=== PATIENT | male | born 1975 | race Caucasian/White ===

== ENCOUNTER → 2019-09-01 | Outpatient (CLI) | payer OTHER ==
[2019-09-01 08:16] LABS: BASOPHILS % (AUTO) 0.7 % (0.0-5.0); EOSINOPHILS % (AUTO) 7.7 % (0.0-8.0); HEMATOCRIT 41.2 % (42-54); LYMPHOCYTES % (AUTO) 29.4 % (21.0-51.0); MEAN CORPUSCULAR HEMOGLOBIN 29.3 pg (27.0-33.0); MEAN CORPUSCULAR HGB CONC 34.7 g/dL (32.0-36.0); MEAN CORPUSCULAR VOLUME 84.4 fL (79-99); MONOCYTES % (AUTO) 9.7 % (3.0-13.0); NEUTROPHILS % (AUTO) 52.3 % (40.0-77.0); PLATELET COUNT (AUTO) 158 K/uL (130-400); RED BLOOD CELL COUNT(AUTO) 4.88 MIL/uL (4.50-6.20); RED CELL DISTRIBUTION WIDTH 12.8 % (11.0-15.5)
[2019-09-01 08:37] LABS: ALBUMIN 4.1 g/dL (3.5-5.0); CREATININE 1.1 mg/dL (0.5-1.5)
== END | disposition home or self-care (01) ==
LOC: LAB 07:57
PROVIDERS: ATTEND Internal Medicine
DX: I10 Essential (primary) hypertension (principal); E78.2 Mixed hyperlipidemia
CPT/HCPCS: 36415; 80053; 80061; 82043; 82570; 85025

== ENCOUNTER → 2020-02-01 | Outpatient (CLI) | payer OTHER ==
[2020-02-01 12:13] LABS: ALBUMIN 4.2 g/dL (3.5-5.0); CREATININE 1.2 mg/dL (0.5-1.5); POTASSIUM 4.4 mmol/L (3.5-5.1); TOTAL PROTEIN, SERUM 7.5 g/dL (6.0-8.3)
== END | disposition home or self-care (01) ==
LOC: LAB 07:57
PROVIDERS: ATTEND Internal Medicine
DX: I10 Essential (primary) hypertension (principal); E78.2 Mixed hyperlipidemia
CPT/HCPCS: 36415; 80053; 80061

== ENCOUNTER → 2020-08-16 | Outpatient (CLI) | payer OTHER ==
[2020-08-16 08:21] LABS: BASOPHILS % (AUTO) 0.7 % (0.0-5.0); EOSINOPHILS % (AUTO) 5.3 % (0.0-8.0); HEMATOCRIT 43.4 % (42-54); LYMPHOCYTES % (AUTO) 21.3 % (21.0-51.0); MEAN CORPUSCULAR HEMOGLOBIN 29.4 pg (27.0-33.0); MEAN CORPUSCULAR HGB CONC 35.3 g/dL (32.0-36.0); MEAN CORPUSCULAR VOLUME 83.5 fL (79-99); MONOCYTES % (AUTO) 9.6 % (3.0-13.0); NEUTROPHILS % (AUTO) 62.6 % (40.0-77.0); PLATELET COUNT (AUTO) 169 K/uL (130-400); WHITE BLOOD COUNT (AUTO) 5.8 K/uL (4.8-10.8)
[2020-08-16 08:35] LABS: CREATININE 0.8 mg/dL (0.5-1.5)
== END | disposition home or self-care (01) ==
LOC: LAB 07:54
PROVIDERS: ATTEND Internal Medicine
DX: J30.9 Allergic rhinitis, unspecified (principal)
CPT/HCPCS: 36415; 80053; 80061; 82043; 85025

== ENCOUNTER → 2021-08-28 | Outpatient (CLI) | payer OTHER ==
[2021-08-28 08:13] LABS: BASOPHILS % (AUTO) 0.5 % (0.0-5.0); HEMATOCRIT 46.1 % (42-54); LYMPHOCYTES % (AUTO) 30.3 % (21.0-51.0); MEAN CORPUSCULAR HEMOGLOBIN 28.9 pg (27.0-33.0); MEAN CORPUSCULAR HGB CONC 33.8 g/dL (32.0-36.0); MEAN CORPUSCULAR VOLUME 85.4 fL (79-99); MONOCYTES % (AUTO) 10.5 % (3.0-13.0); NEUTROPHILS % (AUTO) 51.2 % (40.0-77.0); PLATELET COUNT (AUTO) 194 K/uL (130-400); RED CELL DISTRIBUTION WIDTH 12.9 % (11.0-15.5)
[2021-08-28 08:31] LABS: ALBUMIN 4.4 g/dL (3.5-5.0); BILIRUBIN,TOTAL 0.7 mg/dL (0.2-1.0); POTASSIUM 4.3 mmol/L (3.5-5.1); TOTAL PROTEIN, SERUM 7.9 g/dL (6.0-8.3)
== END | disposition home or self-care (01) ==
LOC: LAB 07:14
PROVIDERS: ATTEND Internal Medicine
DX: I10 Essential (primary) hypertension (principal); E78.2 Mixed hyperlipidemia
CPT/HCPCS: 36415; 80053; 80061; 82043; 85025

== ENCOUNTER → 2021-09-03 | Outpatient (CLI) | payer OTHER | END | disposition home or self-care (01) | LOC: RAH 09:15 | PROVIDERS: ATTEND Internal Medicine | DX: Z13.6 Encounter for screening for cardiovascular disorders (principal) | CPT/HCPCS: 75571 ==

== ENCOUNTER → 2022-03-31 | Outpatient (CLI) | payer OTHER ==
[2022-03-31 08:08] LABS: ALBUMIN 3.9 g/dL (3.5-5.0); POTASSIUM 4.2 mmol/L (3.5-5.1)
== END | disposition home or self-care (01) ==
LOC: LAB 03-30 09:23
PROVIDERS: ATTEND Internal Medicine
DX: I10 Essential (primary) hypertension (principal); E78.2 Mixed hyperlipidemia
CPT/HCPCS: 36415; 80053; 80061

== ENCOUNTER → 2022-10-09 | Outpatient (CLI) | payer OTHER ==
[2022-10-09 08:09] LABS: HEMOGLOBIN A1C 5.1 % (4.0-6.0)
[2022-10-09 08:18] LABS: ALBUMIN 4.2 g/dL (3.5-5.0); CREATININE 0.9 mg/dL (0.5-1.5); POTASSIUM 4.1 mmol/L (3.5-5.1); TOTAL PROTEIN, SERUM 7.5 g/dL (6.0-8.3)
== END | disposition home or self-care (01) ==
LOC: LAB 07:35
PROVIDERS: ATTEND Internal Medicine
DX: I10 Essential (primary) hypertension (principal); R73.01 Impaired fasting glucose; J30.9 Allergic rhinitis, unspecified; E78.2 Mixed hyperlipidemia; D72.819 Decreased white blood cell count, unspecified
CPT/HCPCS: 36415; 80053; 80061; 82043; 83036

== ENCOUNTER → 2023-04-27 | Outpatient (CLI) | payer OTHER ==
[2023-04-27 08:52] LABS: ALBUMIN 3.9 g/dL (3.5-5.0); BILIRUBIN,TOTAL 0.8 mg/dL (0.2-1.0); POTASSIUM 4.1 mmol/L (3.5-5.1); TOTAL PROTEIN, SERUM 7.2 g/dL (6.0-8.3)
== END | disposition home or self-care (01) ==
LOC: LAB 08:13
PROVIDERS: ATTEND Internal Medicine
DX: I10 Essential (primary) hypertension (principal); E78.2 Mixed hyperlipidemia
CPT/HCPCS: 36415; 80053; 80061

== ENCOUNTER → 2023-12-01 | Outpatient (CLI) | payer OTHER ==
[2023-12-01 07:46] LABS: BASOPHILS # (AUTO) 0.03 K/uL (0.00-0.20); BASOPHILS % (AUTO) 0.6 % (0.0-5.0); EOSINOPHILS # (AUTO) 0.16 K/uL (0.00-0.70); EOSINOPHILS % (AUTO) 3.4 % (0.0-8.0); HEMATOCRIT 44.2 % (42-54); IMMATURE GRANULOCYTE ABSOLUTE 0.02 K/uL (0-1); LYMPHOCYTES # (AUTO) 1.3 K/uL (1.0-4.8); LYMPHOCYTES % (AUTO) 26.8 % (21.0-51.0); MEAN CORPUSCULAR HEMOGLOBIN 29.3 pg (27.0-33.0); MEAN CORPUSCULAR HGB CONC 35.3 g/dL (32.0-36.0); MEAN CORPUSCULAR VOLUME 83.1 fL (79-99); MONOCYTES # (AUTO) 0.5 K/uL (0.1-1.0); MONOCYTES % (AUTO) 10.5 % (3.0-13.0); NEUTROPHILS # (AUTO) 2.8 K/uL (1.8-7.7); NEUTROPHILS % (AUTO) 58.3 % (40.0-77.0); PLATELET COUNT (AUTO) 213 K/uL (130-400); RED BLOOD CELL COUNT(AUTO) 5.32 MIL/uL (4.50-6.20); RED CELL DISTRIBUTION WIDTH 13.3 % (11.0-15.5); WHITE BLOOD COUNT (AUTO) 4.7 K/uL (4.8-10.8)
[2023-12-01 07:58] LABS: APPEARANCE,URINE CLEAR (CLEAR); BILIRUBIN,URINE NEGATIVE (NEGATIVE); COLOR,URINE YELLOW (YELLOW); GLUCOSE, URINE (UA) NEGATIVE (NEGATIVE); KETONES,URINE NEGATIVE (NEGATIVE); LEUKOCYTE ESTERASE ,URINE NEGATIVE Leu/uL (NEGATIVE); NITRATE,URINE NEGATIVE (NEGATIVE); OCCULT BLOOD,URINE NEGATIVE (NEGATIVE); PH,URINE 5.5 (5.0-8.0); PROTEIN,URINE 20 mg/dL (NEGATIVE); UROBILINOGEN,URINE 0.2 mg/dL (0.2-1.0)
[2023-12-01 07:58] LABS: HEMOGLOBIN A1C 5.2 % (4.0-6.0)
[2023-12-01 08:00] LABS: ADD UA MICROSCOPIC YES
[2023-12-01 08:01] LABS: MUCUS,URINE RARE LPF (None Seen); RBC,URINE 0-1 /HPF (0-1); SQUAMOUS EPITHELIAL CELL,UR RARE /HPF (0-2); WBC,URINE 0-1 /HPF (0-1)
[2023-12-01 08:17] LABS: ALBUMIN 4.1 g/dL (3.5-5.0); BILIRUBIN,TOTAL 0.7 mg/dL (0.2-1.0); CREATININE 1.1 mg/dL (0.5-1.3); POTASSIUM 4.1 mmol/L (3.5-5.1); TOTAL PROTEIN, SERUM 7.4 g/dL (6.0-8.3)
== END | disposition home or self-care (01) ==
LOC: LAB 07:30
PROVIDERS: ATTEND Internal Medicine
DX: E78.2 Mixed hyperlipidemia (principal); I10 Essential (primary) hypertension; R73.9 Hyperglycemia, unspecified
CPT/HCPCS: 36415; 80053; 80061; 81001; 82043; 82570; 83036; 85025

== ENCOUNTER → 2024-05-09 | Outpatient (CLI) | payer OTHER ==
[2024-05-09 07:39] LABS: BASOPHILS # (AUTO) 0.03 K/uL (0.00-0.20); BASOPHILS % (AUTO) 0.8 % (0.0-5.0); EOSINOPHILS # (AUTO) 0.14 K/uL (0.00-0.70); EOSINOPHILS % (AUTO) 3.5 % (0.0-8.0); HEMATOCRIT 43.3 % (42-54); IMMATURE GRANULOCYTE ABSOLUTE 0.02 K/uL (0-1); LYMPHOCYTES # (AUTO) 1.2 K/uL (1.0-4.8); LYMPHOCYTES % (AUTO) 29.1 % (21.0-51.0); MEAN CORPUSCULAR HEMOGLOBIN 29.2 pg (27.0-33.0); MEAN CORPUSCULAR HGB CONC 34.6 g/dL (32.0-36.0); MEAN CORPUSCULAR VOLUME 84.2 fL (79-99); MONOCYTES # (AUTO) 0.4 K/uL (0.1-1.0); MONOCYTES % (AUTO) 10.3 % (3.0-13.0); NEUTROPHILS # (AUTO) 2.2 K/uL (1.8-7.7); NEUTROPHILS % (AUTO) 55.8 % (40.0-77.0); PLATELET COUNT (AUTO) 157 K/uL (130-400); RED BLOOD CELL COUNT(AUTO) 5.14 MIL/uL (4.50-6.20); RED CELL DISTRIBUTION WIDTH 13.3 % (11.0-15.5)
[2024-05-09 07:53] LABS: ALBUMIN 3.8 g/dL (3.5-5.0); BILIRUBIN,TOTAL 0.9 mg/dL (0.2-1.0); TOTAL PROTEIN, SERUM 6.8 g/dL (6.0-8.3)
[2024-05-09 08:14] LABS: HEMOGLOBIN A1C 5.2 % (4.0-6.0)
== END | disposition home or self-care (01) ==
LOC: LAB 05-08 08:56
PROVIDERS: ATTEND Internal Medicine
DX: Z12.11 Encounter for screening for malignant neoplasm of colon (principal); E78.2 Mixed hyperlipidemia; I10 Essential (primary) hypertension; R73.9 Hyperglycemia, unspecified
CPT/HCPCS: 80053; 80061; 82043; 82570; 83036; 85025

== ENCOUNTER → 2024-11-15 | Outpatient (CLI) | payer OTHER ==
[2024-11-15 07:27] LABS: ASPARTATE AMINOTRANSFERASE 31.0 U/L (10-37); CREATININE 1.1 mg/dL (0.5-1.3); GLOMERULAR FILTR. RATE CALC 83.0 mL/min (>90); GLUCOSE,RANDOM 98.0 mg/dL (70-105); LDL DIRECT 76.0 mg/dL (0-99); SODIUM SERUM 140.0 mmol/L (136-145); TOTAL PROTEIN, SERUM 7.1 g/dL (6.0-8.3); UREA NITROGEN, BLOOD 18.0 mg/dL (7-18)
== END | disposition home or self-care (01) ==
LOC: LAB 06:25
PROVIDERS: ATTEND Internal Medicine
DX: E78.2 Mixed hyperlipidemia (principal); I10 Essential (primary) hypertension
CPT/HCPCS: 36415; 80053; 80061